=== PATIENT | female | born 1995 | race Two or more races ===

== ENCOUNTER 2020-04-22 15:48 | Emergency (ER) | payer OTHER ==
[~2020-04-22] VITALS: Ht 160 cm; Wt 54.4 kg
[~2020-04-22 15:48] MED LIST: IBUPROFEN800 MG PO; ORPH100T PO; PROVENTIL17 G1; [UNRECOGNIZED DRUG - OTHER] PO
== END 2020-04-22 21:18 | disposition home or self-care (01) ==
LOC: ER 15:48
DX: U07.1 COVID-19 (principal)

== ENCOUNTER 2021-04-09 20:40 | Emergency (ER) | payer OTHER ==
[~2021-04-09] VITALS: Ht 167.6 cm; Wt 75.3 kg
[2021-04-10] MEDS ORDERED: KETO10TA2 PO (01:44)
== END 2021-04-10 01:46 | disposition home or self-care (01) ==
LOC: ER 20:40
DX: R10.32 Left lower quadrant pain (principal); N83.202 Unspecified ovarian cyst, left side

== ENCOUNTER 2023-03-04 12:48 | Emergency (ER) | payer OTHER ==
[~2023-03-04] VITALS: Ht 167.6 cm; Wt 76.2 kg
[~2023-03-04 12:48] MED LIST changes: +KETO10TA2 PO
== END 2023-03-04 18:57 | disposition home or self-care (01) ==
LOC: ER 12:48
DX: K25.9 Gastric ulcer, unspecified as acute or chronic, without hemorrhage or perforation (principal)